=== PATIENT | female | born 1970 | race Asian ===

== ENCOUNTER 2016-12-07 14:52 | Emergency (ER) | payer OTHER ==
[~2016-12-07] VITALS: Ht 162.6 cm; Wt 74.1 kg
[2016-12-07 15:55] VITALS: BP 125/78
[2016-12-07 15:56] LABS: UA SPECIFIC GRAVITY 1.025 (1.005-1.035); microscopic required? YES; urine erythrocyte 3+ (NEGATIVE)
== END 2016-12-07 15:55 | disposition home or self-care (01) ==
LOC: ED 14:52
DX: N39.0 Urinary tract infection, site not specified (principal)